=== PATIENT | male | born 1955 | race Caucasian/White ===

== ENCOUNTER 2017-07-31 08:16 | Day surgery (SDC) | payer OTHER ==
[~2017-07-31] VITALS: Ht 175.3 cm; Wt 139.0 kg
[~2017-07-31 08:16] MED LIST: AMLO10TA2 PO; AZEL137S4 NAS; CALC-112 PO; CINNAMON PO; CYAN1TAB29 PO; FISH OIL PO; FLUO20CA19 PO; FLUO40CA2 PO; GLUC1CAP18 PO; HYDR25TA6 PO; IBUP-1223 PO; OXYB5TAB7 PO; OXYC-307 PO; POTASSIUM PO; TYLENOL PO; VITAMIN C PO
[2017-07-31] MEDS ORDERED: LACTATED RINGERS 1,000 ML IV SCH (09:00)
[2017-07-31 09:11] VITALS: BP 131/91
[2017-07-31] MEDS ORDERED: PROPOFOL 10 MG/ML, 50ML ONE (09:44)
== END 2017-07-31 11:45 ==
LOC: OUT 08:16
PROVIDERS: ATTEND Internal Medicine Gastroenterology
DX: D12.0 Benign neoplasm of cecum (principal); K57.30 Diverticulosis of large intestine without perforation or abscess without bleeding; I10 Essential (primary) hypertension; G47.33 Obstructive sleep apnea (adult) (pediatric); Z09 Encounter for follow-up examination after completed treatment for conditions other than malignant neoplasm; Z86.010 Personal history of colon polyps; Z88.0 Allergy status to penicillin; Z88.8 Allergy status to other drugs, medicaments and biological substances
CPT/HCPCS: 88305; 93005; J2704; J7120